=== PATIENT | female | born 1990 | race Two or more races ===

== ENCOUNTER 2021-05-24 21:23 | Emergency (ER) | payer SELFPAY ==
[~2021-05-24] VITALS: Ht 157.5 cm; Wt 68.9 kg
[2021-05-24 21:41] VITALS: BP 133/85
== END 2021-05-25 01:03 | disposition left against medical advice (07) ==
LOC: EDBD 21:26 → ER 21:26
DX: H92.01 Otalgia, right ear (principal); R11.0 Nausea; Z53.21 Procedure and treatment not carried out due to patient leaving prior to being seen by health care provider